=== PATIENT | female | born 1995 | race Two or more races ===

== ENCOUNTER 2021-06-05 19:40 | Observation (INO) | payer MEDICAID, OTHER ==
[~2021-06-05] VITALS: Ht 165.1 cm; Wt 63.0 kg
[2021-06-07] MEDS ORDERED: PREN-96 PO (13:22)
== END 2021-06-06 00:23 | disposition home or self-care (01) ==
LOC: LDRP 19:40
PROVIDERS: ADMIT Obstetrics & Gynecology Obstetrics; ATTEND Obstetrics & Gynecology Obstetrics
DX: O47.1 False labor at or after 37 completed weeks of gestation (principal); Z3A.37 37 weeks gestation of pregnancy
CPT/HCPCS: 59025; 76818; 81002; G0378

== ENCOUNTER 2021-06-07 12:19 | Observation (INO) | payer MEDICAID ==
[2021-06-07] MEDS ORDERED: PREN-96 PO (13:22)
== END 2021-06-07 14:50 | disposition home or self-care (01) ==
LOC: LDRP 12:19
PROVIDERS: ADMIT Obstetrics & Gynecology Obstetrics; ATTEND Obstetrics & Gynecology Obstetrics
DX: O48.0 Post-term pregnancy (principal); O69.81X0 Labor and delivery complicated by cord around neck, without compression, not applicable or unspecified; Z3A.40 40 weeks gestation of pregnancy
CPT/HCPCS: 59025; 76818; 81002; 94760; G0378

== ENCOUNTER 2021-06-08 07:11 | Observation (INO) | payer MEDICAID ==
[~2021-06-08] VITALS: Ht 165.1 cm; Wt 73.9 kg
[~2021-06-08 07:11] MED LIST: PREN-96 PO
== END 2021-06-08 10:19 | disposition home or self-care (01) ==
LOC: LDRP 07:11
PROVIDERS: ADMIT Obstetrics & Gynecology; ATTEND Obstetrics & Gynecology
DX: O62.9 Abnormality of forces of labor, unspecified (principal); O99.891 Other specified diseases and conditions complicating pregnancy; M54.9 Dorsalgia, unspecified; O42.92 Full-term premature rupture of membranes, unspecified as to length of time between rupture and onset of labor; Z3A.40 40 weeks gestation of pregnancy; Z79.899 Other long term (current) drug therapy
CPT/HCPCS: 59025; 76818; 81002; 82948; 84112; G0378; Q0114

== ENCOUNTER 2021-06-09 04:21 | Inpatient (IN) | payer MEDICAID ==
[~2021-06-09] VITALS: Ht 167.6 cm; Wt 64.9 kg
[2021-06-09] MEDS ORDERED: BUTORPHANOL TARTRATE 2 MG/1 ML VIAL IV PRN ×2 (08:45)
[2021-06-09] MEDS ORDERED: LIDOCAINE 2%HCL (LOCAL ANESTH.) INJ 20ML MDV IJ PRN (08:45)
[2021-06-09] MEDS ORDERED: DERMOPLAST 60ML BOTTLE TOP PRN (08:45)
[2021-06-09] MEDS ORDERED: WITCH HAZEL-GLYCERIN PAD TOP PRN (08:45)
[2021-06-09] MEDS ORDERED: PROMETHAZINE HCL 25 MG/ML 1ML IV PRN (08:45)
[2021-06-09] MEDS: LACTATED RINGER'S 1,000 ML IV SCH ×4 (08:51→17:00)
[2021-06-09 09:24] LABS: Hematocrit 37.6 % (36.0-46.0); Hemoglobin 13.1 g/dL (12.2-16.2); Mean Corpuscular Hemoglobin 31.6 pg (28.0-32.0); Mean Corpuscular Hgb Conc. 34.8 g/dL (32.0-36.0); Mean Corpuscular Volume 90.9 fL (80.0-100.0); Red Blood Cells 4.14 10^6/uL (4.0-5.20); White Blood Cell 10.1 10^3/uL (4.4-10.8)
[2021-06-09 09:30] LABS: Urine WBC None Seen /hpf (0 - 5)
[2021-06-09] MEDS ORDERED: miSOPROStol 50 MCG per PRE-CUT 1/2 TAB PO PRN (09:30)
[2021-06-09 09:38] LABS: Band Neutrophils % (manual) 0; Basophils % (manual) 0 (0.0-2.0); Blast Cells 0; Eosinophils % (manual) 0 (0-7); INR 1.01 (0.9-1.15); Metamyelocytes % 0; Myelocytes % 0; Partial Thromboplastin Time 27.1 sec (23.6-33.0); Promyelocytes % 0; Reactive Lymphocytes 0
[2021-06-09 09:43] LABS: Albumin 2.8 g/dL (3.4-5.0); Calcium 8.7 mg/dL (8.5-10.1); Potassium 3.4 mmol/L (3.5-5.1)
[2021-06-09 09:46] LABS: BUN/Creatinine Ratio 11.5; Bilirubin, Total 0.5 mg/dL (0.2-1.0); Total Protein 6.6 g/dL (6.4-8.2)
[2021-06-09 09:55] LABS: Alcohol, Urine < 3.0 mg/dL (0-10); Amphetamine Screen, Urine NEGATIVE (NEGATIVE); Barbiturate Scree,Urine NEGATIVE (NEGATIVE); Benzodiazephine Screen, Urine NEGATIVE (NEGATIVE); Cannabinoid Screen, Urine NEGATIVE (NEGATIVE); Cocaine Screen, Urine NEGATIVE (NEGATIVE); Opiate Scree,Urine NEGATIVE (NEGATIVE); Phencyclidine Screen, Urine NEGATIVE (NEGATIVE)
[2021-06-09 09:58] LABS: Urine Amorphous Crystal FEW /hpf (None Seen); Urine Bacteria NONE SEEN /hpf (None Seen); Urine Blood Negative /uL (Negative); Urine Mucus FEW (None Seen); Urine Specific Gravity 1.012 (1.001-1.035)
[2021-06-09] MEDS ORDERED: LACT. RINGERS/OXYTOCIN 20UNITS 1,000 ML IV SCH (10:00)
[2021-06-09] MEDS ORDERED: TERBUTALINE SULFATE 1 MG/ML 1ML VIAL SC PRN (10:00)
[2021-06-09] MEDS ORDERED: LACT. RINGERS/OXYTOCIN 20UNITS 500 ML IV ONE (10:00)
[2021-06-09 11:14] LABS: Lymphocytes % (manual) 11 (10.0-50.0); Monocytes % (manual) 9 (0-12)
[2021-06-09] MEDS: PHISODERM TOP SOLN 240ML BTL TOP PRN (11:36)
[2021-06-09] MEDS ORDERED: NALOXONE HCL 0.4 MG/ML VIAL IV ONE (14:00)
[2021-06-09] MEDS ORDERED: fentaNYL CITRATE 100 MCG/2 ML VL IV ONE (14:00)
[2021-06-09] MEDS ORDERED: ePHEDrine SULFATE 50 MG/ML AMP IV ONE (14:00)
[2021-06-09] MEDS ORDERED: LIDOCAINE HCL 2 %PF INJ 10ML AMP IJ ONE (14:00)
[2021-06-09] MEDS ORDERED: ROPIVACAINE HCL 200 ML EPI SCH (14:00)
[2021-06-10] MEDS ORDERED: LACT. RINGERS/OXYTOCIN 20UNITS 500 ML IV ONE (00:30)
[2021-06-10] MEDS ORDERED: ONDANSETRON ODT 4 MG TAB PO PRN (02:00)
[2021-06-10] MEDS ORDERED: ACETAMINOPHEN 325 MG TAB PO PRN (02:00)
[2021-06-10] MEDS: IBUPROFEN 600 MG TAB PO PRN ×3 (02:20→22:05)
[2021-06-10 03:00] VITALS: BP 112/70
[2021-06-10 06:53] VITALS: BP 114/74
[2021-06-10 07:06] LABS: RPR Non Reactive (Non Reactive)
[2021-06-10] MEDS: PHISODERM TOP SOLN 240ML BTL TOP PRN (10:10)
[2021-06-10 11:00] VITALS: BP 96/63
[2021-06-10 15:00] VITALS: BP 101/65
[2021-06-10 19:15] VITALS: BP 112/77
[2021-06-10] MEDS ORDERED: DOCUSATE SOD 100 MG CAP PO SCH (22:00)
[2021-06-10 23:21] VITALS: BP 98/82
[2021-06-11 03:00] VITALS: BP 94/73
[2021-06-11 06:58] VITALS: BP 102/69
[2021-06-11] MEDS: IBUPROFEN 600 MG TAB PO PRN (08:55)
[2021-06-11] MEDS ORDERED: BISACODYL 10 MG RECT SUPP PR ONE (10:45)
[2021-06-11 11:00] VITALS: BP 110/65
== END 2021-06-11 12:00 | disposition home or self-care (01) | DRG 560 ==
LOC: LDRP 04:21 → OBSVTOIN 07:42 → LDRP 06-10 01:57
PROVIDERS: ADMIT Obstetrics & Gynecology; ATTEND Obstetrics & Gynecology
PROC: 10E0XZZ Delivery of Products of Conception, External Approach (ICD-10-PCS; principal; 2021-06-09)
PROC: 0HQ9XZZ Repair Perineum Skin, External Approach (ICD-10-PCS; 2021-06-09)
PROC: 3E0R3BZ Introduction of Anesthetic Agent into Spinal Canal, Percutaneous Approach (ICD-10-PCS; 2021-06-09)
PROC: 00HU33Z Insertion of Infusion Device into Spinal Canal, Percutaneous Approach (ICD-10-PCS; 2021-06-09)
PROC: 3E0P7VZ Introduction of Hormone into Female Reproductive, Via Natural or Artificial Opening (ICD-10-PCS; 2021-06-09)
PROC: 3E0DXGC Introduction of Other Therapeutic Substance into Mouth and Pharynx, External Approach (ICD-10-PCS; 2021-06-09)
PROC: 10907ZC Drainage of Amniotic Fluid, Therapeutic from Products of Conception, Via Natural or Artificial Opening (ICD-10-PCS; 2021-06-09)
DX: O69.81X0 Labor and delivery complicated by cord around neck, without compression, not applicable or unspecified (principal); Z37.0 Single live birth; O70.0 First degree perineal laceration during delivery; Z3A.40 40 weeks gestation of pregnancy; Z20.822 Contact with and (suspected) exposure to COVID-19
CPT/HCPCS: 36415; 59025; 59409; 62282; 80053; 80307; 81001; 81002; 85007; 85027; 85610; 85730; 86592; 86850; 86900; 86901; 94760; 96360; 96361; 96365; 96366; G0378; J2590